=== PATIENT | female | born 1950 | race Hispanic/Latino ===

== ENCOUNTER 2019-01-11 06:52 | Day surgery (SDC) | payer MEDICARE ==
--- NOTE | 2019-01-11 07:29 | Anesthesia Day of Surgery ---
Anesthesia Day of Surgery - Day of Surgery Patient Examined: Yes Patient H&P Reviewed: Yes Patient is NPO: Yes
--- NOTE | 2019-01-11 07:31 | Anesthesia Consultation ---
Anesthesia Consult and Med Hx Date of service: 01/11/19 - Airway Anesthetic Teeth Evaluation: Good, Caps ROM Head & Neck: Adequate Mental/Hyoid Distance: Adequate Mallampati Class: Class II Intubation Access Assessment: Probably Good - Pre-Operative Health Status ASA Pre-Surgery Classification: ASA2 Proposed Anesthetic Plan: MAC - Pulmonary Hx Asthma: Yes (DURING YOUTH) - Cardiovascular System Hx Cardia Arrhythmia: Yes (Tachy) - Central Nervous System Hx Seizures: Yes (ONE DUE TO ELEVATED HEARTRATE (CORRECTED WITH BETA PRANAY)) Hx Psychiatric Problems: No - Gastrointestinal Hx Ulcer: Yes - Endocrine Hx Thyroid Disease: Yes Hx Hypothyroidism: Yes - Other Systems Hx Alcohol Use: No Hx Substance Use: No Hx Cancer: No - Additional Comments Anesthesia Medical History Comments: LUPUS
[2019-01-11] MEDS ORDERED: TETRACAINE 0.5% OS SCH (07:45)
[2019-01-11] MEDS: MYDRIACYL OS SCH ×3 (07:55→08:05)
[2019-01-11] MEDS: AK-Dilate OS SCH ×3 (07:55→08:05)
[2019-01-11] MEDS: VIGAMOX OS SCH ×3 (07:55→08:05)
[2019-01-11] MEDS ORDERED: NEOFRIN OS SCH (08:00)
[2019-01-11] MEDS ORDERED: VERSED ONE (08:35)
[2019-01-11] MEDS ORDERED: SUBLIMAZE ONE (08:36)
--- NOTE | 2019-01-11 08:52 | Operative Report ---
Operative Report Operative Report: PATIENT'S NAME: DATE OF : DATE OF SURGERY: 01/11/2019 PREOPERATIVE DIAGNOSIS: Cataract Left eye POSTOPERATIVE DIAGNOSIS: Same OPERATIVE PROCEDURE: Phacoemulsification with intraocular lens implantation, left eye SURGEON: Shwetha Wright M.D. SHUT OFF WORKER SURGEON: oRbert Lens: [id number] 22.0 D ANESTHESIA: Monitored anesthesia care in combination with topical and intracameral anesthesia because of the established specific risk of reflux, arrhythmias, or anxiety attacks associated with ocular manipulation, as well as the difficulty of the turner and former automatic to manage such potentially catastrophic events while simultaneously attempting to complete the surgical procedure and was deemed necessary for the patient's safety to have an Sports Bookmaker present during the procedure whenever possible. An Sports Bookmaker was utilized to regulate the intravenous sedation of the patient so the patient was cooperative yet not asleep in order for the patient to successfully maintain fixation of the eye on the operating light of the microscope. COMPLICATIONS: No surgical complications No blood loss. ALLERGIES: Penicillin sulfa PROGNOSIS: Excellent INDICATIONS FOR SURGERY: The patient is undergoing surgery in the hopes of eliminating or improving these visual difficulties. PROCEDURE: After arriving at the surgery center, the patient was given topical anesthetic and dilating drops, as noted in the record. The patient was then taken into the operating room and given more anesthetic drops. The eyelids, lashes, and lid margins were scrubbed with Betadine solution, and the patient was draped. The Nurse Sports Bookmaker administered IV sedation and monitored the patient during the procedure. The eye was then fixated with a 0.12, and a stab incision was made in the peripheral clear cornea into the anterior chamber. This was made on my left side. Viscoelastic was next used to fill the anterior chamber. The eye was once again fixated with the 0.12 forceps and a keratome was used make an incision in clear cornea peripherally on my right hand side temporally. The capsule forceps were used to open the central anterior capsule and then make a continuous round capsulotomy. Hydrodissection was carried out utilizing a cannula and balanced salt solution to delineate the cortical material from the capsule and the nucleus from the cortical material. The phaco tip was introduced into the eye and used to remove the anterior cortical material in the area of the capsulotomy. Then the phaco tip was buried into the nucleus, and a chopping instrument was introduced into the eye and used to provide countertraction in the nucleus between this instrument and the phaco tip fracturing the nucleus. This procedure was repeated multiple times, providing multiple small segments of the lens, and then the phaco tip was used to remove each of these segments. An I/A tip was then used to remove the remaining cortex. The anterior chamber was refilled with viscoelastic. An one-piece, acrylic intraocular lens was then placed into an inserting cartridge. The tip of the inserting cartridge was introduced into the keratome incision and into the anterior chamber. The implant was gently advanced through the cartridge and into the eye, where it unfolded, and both haptics were placed in the capsular bag, where it centered nicely and appeared to be well fixated. After placement of the intraocular lens, the I~and~A handpiece was placed back into the eye and used to remove the viscoelastic, including viscoelastic that was behind the optic of the intraocular lens. The anterior chamber was then filled with balanced salt solution, and hydration of the wound was used to cause swelling of the wound and more appropriate watertight closure. When the wound was found to be firm, the patient was asked to comment on how bright the light was. If there was no light perception at all or if the light was substantially dimmer than during the rest of the surgery, the amount of fluid in the eye was decompressed to lower the intraocular pressure until the patient could see the bright light again. This was done to avoid any damage or decreased blood flow to the optic nerve. MEDICATIONS APPLIED AT END OF SURGERY: One drop of Pred Forte and Vigamox The patient was given a shield to wear at night and was instructed not to rub or push on the eye. DISCHARGE SUMMARY: The patient was released in stable condition. The patient and those with the patient were given a written sheet of postoperative instructions and counseling on any abnormal laboratory studies. The patient is to see us tomorrow for follow-up in the office and is to call immediately for any difficulties. Shwetha Wright M.D. Date
--- NOTE | 2019-01-11 08:53 | Short Stay Summary ---
Short Stay Documentation Date of service: 01/11/19 - History H&P: obtained from office - Allergies and Medications Current Medications: Allergies Penicillins Allergy (Verified 01/08/19 16:18) Hives Sulfa (Sulfonamide Antibiotics) Allergy (Verified 01/08/19 16:18) Hives Home Medications Medication Instructions Recorded Confirmed Last Taken Type Allopurinol [Zyloprim] 300 mg PO QDAY 01/08/19 01/08/19 Unknown History Calcium Carbonate/Vitamin D3 1 each PO BID 01/08/19 01/08/19 01/11/19 05:00 History [Calcium 600 with Vit D Chew Tb] Cholecalciferol Vit D3 [Vitamin D3 1,000 unit PO QDAY 01/08/19 01/08/19 01/10/19 14:00 History 1,000 UNIT TAB] Colchicine 0.6 mg PO BID 01/08/19 01/08/19 Unknown History DULoxetine [Cymbalta] 30 mg PO BID 01/08/19 01/08/19 Unknown History Denosumab [Prolia] 60 mg SQ Q6M 01/08/19 01/08/19 01/10/19 14:00 History Levothyroxine [Synthroid] 100 mcg PO QAM 01/08/19 01/08/19 Unknown History Lisinopril [Zestril TAB] 2.5 mg PO QDAY 01/08/19 01/08/19 Unknown History Lovastatin [Altoprev] 40 mg PO QAM 01/08/19 01/08/19 Unknown History Nadolol [Corgard] 20 mg PO QHS 01/08/19 01/08/19 01/11/19 05:00 History Pantoprazole [Protonix TAB] 40 mg PO QDAY 01/08/19 01/08/19 Unknown History Saccharomyces Boulardii [Florastor] 250 mg PO BID 01/08/19 01/08/19 01/10/19 14:00 History Sodium Fluoride/Potassium Nit 100 ml DT BID 01/08/19 01/08/19 01/10/19 14:00 History [Prevident 5000 Enamel Protect] Tizanidine HCl [Zanaflex 2mg CAP] 2 mg PO QDAY PRN 01/08/19 01/08/19 01/10/19 14:00 History Turmeric Root Extract [Turmeric] 538 mg PO DAILY 01/08/19 01/08/19 01/10/19 14:00 History traMADol [Ultram 50 MG tab] 50 mg PO TID 01/08/19 01/08/19 Unknown History Active Medications Moxifloxacin HCl (Vigamox) 1 drops OS Q5MIN ABDIRIZAK Stop: 01/13/19 08:01 Last Admin: 01/11/19 08:05 Dose: 1 drops Documented by: Phenylephrine HCl (Ak-Dilate) 2 drops OS Q5MIN ABDIRIZAK Stop: 01/11/19 15:00 Last Admin: 01/11/19 08:05 Dose: 1 drops Documented by: Prednisolone Acetate (Pred Forte 1%) 1 drops OS ONCE NR Stop: 01/11/19 15:00 Tetracaine HCl (Tetracaine 0.5%) 1 drops OS Q5M ABDIRIZAK Stop: 01/11/19 12:00 Last Admin: 01/11/19 07:55 Dose: 1 drops Documented by: Tropicamide (Mydriacyl) 1 drops OS Q5MIN ABDIRIZAK Stop: 01/11/19 12:00 Last Admin: 01/11/19 08:05 Dose: 1 drops Documented by: - Brief post op/procedure progress note Date of procedure: 01/11/19 Pre-op diagnosis: left cataract Post-op diagnosis: same Procedure: Phacoemulsification with intraocular lens insertion left eye Anesthesia: MAC, local Surgeon: SILVANA RANDALL Estimated blood loss: none Pathology: none Condition: stable - Disposition Condition at discharge: Good Disposition: DC-01 TO HOME OR SELFCARE - Discharge Diagnoses (1) Cortical age-related cataract of left eye Status: Resolved Short Stay Discharge Plan Follow up with: ANA CRISTINA FELIX MD [Primary Care Provider] - 7 Days
[2019-01-11] MEDS ORDERED: PRED FORTE 1% OS NR (09:00)
[2019-01-11 09:40] VITALS: BP 106/66
--- NOTE | 2019-01-11 14:07 | Post Anesthesia Evaluation ---
- Post Anesthesia Evaluation Patient Participated: Yes Airway Patent: Yes Stable Respiratory Function: Yes Nausea/Vomiting: No Temp > 96.8F: Yes Pain Manageable: Yes Adequeate Hydration: Yes Anesthesia Complications: No Block Receding Appropriately: Not Applicable Patient on Ventilator: No
== END 2019-01-11 09:40 | disposition home or self-care (01) ==
LOC: OR 06:52
DX: H25.012 Cortical age-related cataract, left eye (principal); E03.9 Hypothyroidism, unspecified; D64.9 Anemia, unspecified; G43.909 Migraine, unspecified, not intractable, without status migrainosus; I25.10 Atherosclerotic heart disease of native coronary artery without angina pectoris; E78.00 Pure hypercholesterolemia, unspecified; J45.909 Unspecified asthma, uncomplicated; K21.9 Gastro-esophageal reflux disease without esophagitis; M19.90 Unspecified osteoarthritis, unspecified site; M81.0 Age-related osteoporosis without current pathological fracture; Z98.890 Other specified postprocedural states; Z88.0 Allergy status to penicillin; Z87.442 Personal history of urinary calculi; Z88.2 Allergy status to sulfonamides; Z79.899 Other long term (current) drug therapy; Z79.1 Long term (current) use of non-steroidal anti-inflammatories (NSAID); Z90.710 Acquired absence of both cervix and uterus
CPT/HCPCS: 66984; J2250; J3010; V2632